=== PATIENT | male | born 1975 ===

== ENCOUNTER 2025-01-24 14:08 | Outpatient (AMB) | payer MEDICARE, SELFPAY ==
--- OUTSIDE RECORDS SUMMARY | 2020-04-16 10:45 | XMS_ITS | Continuity of Care Document ---
Author Organization [facility] Address [address] [place] [phone] Phone Care Team Providers Care Golf Course Superintendent Name Role Phone Chris Haines MD Unavailable Unavaila ble Allergies, Adverse Reactions, Alerts Substance Reaction Status Criticality No Known Allergies Active No Inform ation Medications Medication Instructions Dosage Effective Dates (start - stop) Status Comments erythromycin 5 mg/gram (0.5 %) eye ointment apply 1 drop by ophthalmic route every evening ribbon into the left lower conjunctival sac - Active moxifloxacin 0.5 % eye drops instill 1 drop by Ophthalmic route 4 times every day into left eye 1 drop - Active Fortified Cefazolin 50mg/ml OPHTHALMIC DROPS 1 drop into left eye every hour while awake - Active Cyclogyl 1 % eye drops - Active Procedures Procedure Date OFFICE/OUTPATIENT VISIT, EST Corneal Topography OFFICE/OUTPATIENT VISIT, EST OFFICE/OUTPATIENT VISIT, EST OFFICE/OUTPATIENT VISIT, EST OFFICE/OUTPATIENT VISIT, EST OFFICE/OUTPATIENT VISIT, EST OFFICE/OUTPATIENT VISIT, EST No Charge No Charge CORNEAL SMEAR OFFICE EMERGENCY CARE OFFICE/OUTPATIENT VISIT, NEW Advance Directives Directive Yes / No Effective Date File Name No Information Encounters Encounter Description Practice Location Reason(s) For Visit Diagnoses Date Provider Providers Copied on Encounter OFFICE/OUTPAT IENT VISIT, EST [facility], [address] [place] [address], [id number], [place] tel:[phone] Cornea Consult Service Central corneal ulcer, left eye (chief complaint) Central corneal opacity, left eye 1 eRjio Tavares er. 0 [facility], [address], [place], [address], [place]. tel: [phone] Referring Provider: James Simpson, [address] [place] [address], [address]. tel:[phone] OFFICE/OUTPAT IENT VISIT, [facility], [address] [place] [address], [id number], [place] tel:[phone] 81 Cornea Consult Service Corneal Ulcer OS (chief complaint) Central corneal ulcer, left eyeCentral corneal opacity, left eye 0 Yancy Mioph er. [address] [place] [address], [address], [place], [address], [place]. tel: [phone] Referring Provider: James Simpson, [address] [place] [address], [id number]. tel:[phone] OFFICE/OUTPAT IENT VISIT, [facility], [address] [place] [address], [id number], [place] tel:[phone] 81 Cornea Consult Service Corneal Ulcer OS (chief complaint) Central corneal ulcer, left eye 0 Yancy Chapin er. [address] [place] [address], [address], [place], [address], [place]. tel: [phone] Referring Provider: James Simpson, [address] [place] [address], [place], [address]. tel:[phone] OFFICE/OUTPAT IENT VISIT, [facility], [address] [place] [address], [id number], [place] tel:[phone] 81 Cornea Consult Service corneal ulcer OS (chief complaint) Central corneal ulcer, left eye 0 Yancy Mioph er. [address] [place] [address], [address], [place], [address], [place]. tel: [phone] Referring Provider: James Simpson [address] [place] [address], [facility] [place], [address]. tel:[phone] OFFICE/OUTPAT IENT VISIT, [facility], [address] [place] [address], [id number], [place] tel:[phone] 81 Cornea Consult Service Corneal Ulcer OS (chief complaint) Central corneal ulcer, left eye 0 Rapkolbyo Tavares er. 0 [facility], [address], [place], [address], [place]. tel: [phone] Referring Provider: Cliff Hernandez[address] [place] [address], [facility] [place], [address]. tel:[phone] OFFICE/OUTPAT IENT VISIT, [facility], [address] [place] [address], [id number], [place] tel:[phone] 81 Cornea Consult Service corneal ulcer OS (chief complaint) Central corneal ulcer, left eye 0 Yancy Mioph er. 0 [facility], [address], [place], [address], [place]. tel: [phone] Referring Provider: Cliff Hernandez[address] [place] [address], [facility] [place], [address]. tel:[phone] OFFICE/OUTPAT IENT VISIT, [facility], [address] [place] [address], [id number], [place] tel:[phone] 81 Cornea Consult Service No Information 0 Yancy Mioph er. 0 [facility], [address], [place], [address], [place]. tel: [phone] Referring Provider: [place] Hernandez [facility], [facility] [place], [address]. tel:[phone] [facility], [address] [place] [address], [id number], [place] tel:[phone] 81 Cornea Consult Service Central Corneal Ulcer OS (chief complaint) Central corneal ulcer, left eye 0 Yancy Chapin er. [address] [facility], [address], [place], [address], [place]. tel: [phone] OFFICE/OUTPAT IENT VISIT, [facility], [address] [facility], [place], [place], [id number], [place] tel:[phone] 81 Cornea Consult Service Corneal Ulcer OS. (chief complaint) Central corneal ulcer, left eye 0 Yancy Chapin er. [address] [facility], [address], [place], [address], [place]. tel: [phone] Referring Provider: James Simpson [address] [place] [address], [address]. tel:[phone] Family History Family Member Type Diagnosis Age At Onset No Information Payers Payer name Insurance type Covered constitution party ID Authoriza tirip(s) [facility] [id number] [place] [id number] Social History Type Description Quantity Date Captured Comments Alcohol Use Details Unknown Caffeine Use Details Unknown Tobacco Use Status No Information Smoking Status No Information Sex Male Chief Complaint And Reason For Visit From encounter dated '04/16/2020 15:45'. Central corneal ulcer, left eye (chief complaint). Description: The 45 year old male presents for f/u evaluation of paracentral corneal scarring after a cornea ulcer, OS. Patient reports he has not noticed any changes since last office visit. Vision is still somewhat blurry in OS. OD is fine. Patient states vision in OS is foggy it's like looking out of a dirty window. Denies pain, redness and discharge. Currently using PS ointment qhs OS. Reason For Referral Reason For Referral No Information History Of Present Illness Encounter Date Complaint History Of Prese nt Illness Central corneal ulcer, left eye The 45 year old male presents for f/u evaluation of paracentral corneal scarring after a cornea ulcer, OS. Patient reports he has not noticed any changes since last office visit. Vision is still somewhat blurry in OS. OD is fine. Patient states vision in OS is foggy it's like looking out of a dirty window. Denies pain, redness and discharge. Currently using PS ointment qhs OS. Corneal Ulcer OS The 45 year old male presents for follow-up of corneal ulcer OS. The patient denies pain, redness, discharge comfort is good. Vision is a little less blurry OS, slightly better than last visit, but not back to baseline. Patient using Polysporin ointment qhs OS. Corneal Ulcer OS The 45 year old male presents for follow-up of corneal ulcer OS. The patient denies pain, redness, discharge-comfort is good. Vision is a little less blurry OS but not back to baseline. Currently using moxi qid OS (started 02/12/20) and PS ointment qhs OS. Patient used ff vanc/tobra q4hrs & Cyclogyl bid x 5 days after last visit (stopped 02/12/20). corneal ulcer OS The 45 year old male presents for f/u of corneal ulcer OS. The patient is feeling better and denies pain, redness, d/c. VA is a little less blurry OS. Currently using fortified cefazolin and fortified tobramycin q4h, PS ointment qhs, Cyclogyl 1% bid - all OS. Corneal Ulcer OS The 45 year old male presents for evaluation of corneal ulcer OS. Patient states vision and pain have improved. Overall 30-50% better. Patient states slight occasional headache and discharge upon awakening. Patient states OTC pain medication help with headaches. Patient is currently using fortified cefazolin and fortified tobramycin to q2h WA, PS ointment qhs and Cyclogyl 1% tid, all OS. corneal ulcer OS The 44 year old male presents for f/u of corneal ulcer OS. The patient reports pain OS, sometimes has to take tylenol for relief. VA has slightly improved slightly. Less tearing. Currently using fortified cefazolin q1h WA and q2h ON and fortified tobramycin q1h WA and q2h ON and Cyclogyl 1% tid - all OS. Central Corneal Ulcer OS The 44 year old male presents for 2-day follow-up of a corneal ulcer OS. 1st seen emergently 11/17/20 and cultured and started on fort abx. Vision is blurry OS and not much change from previous visit. Tearing and discomfort MUCH better Currently using FF Ancef/Tobra q1hr WA & q2hrs ON as well as Cyclogyl tid. Using Tylenol & Advil prn for pain as well. Corneal Ulcer OS. The 44 year ol d male presents for an urgent evaluation of corneal ulcer OS. Seen and referred by Dr. James [facility]. Patient reports that on 01/07/20 he first noticed his OS red, irritated and painful in OS; he went to the hospital and was seen and dx'd with possible pink eye. Patient then seen Dr. Simpson on 01/10/20 and was dx'd with corneal ulcer OS and dx'd with ofloxacin q1h WA and Ilo qhs OS. He followed up on 01/13/20 & 01/17/20. Patient states he is still having severe pain and redness with no improvement in OS. Pain level 10/10. Hardly sleeps due to the pain He feels very weak and tired. Vision is stable but blurry in OS. Denies discharge. Patient denies associated trauma prior to onset. Denies CL use. Currently using Ocuflox q1 hr OS and Ilo shant qhs OS. He is also taking po ibuprofen/ Tylenol for pain. Functional Status Date Functional Assessmen t No Information Instructions Date Instruction Additional Infor jacki Impression/Plan Related to Centr al corneal opacity, left eye Impression/Plan Related to Centr al corneal opacity, left eye Impression/Plan Related to Centr al corneal ulcer, left eye Impression/Plan Related to Centr al corneal ulcer, left eye Impression/Plan Related to Centr al corneal ulcer, left eye Impression/Plan Related to Centr al corneal ulcer, left eye Impression/Plan Related to Centr al corneal ulcer, left eye Impression/Plan Related to Centr al corneal ulcer, left eye Assessments Type Assessment Date assessment Central corneal opacity, left ey e impression Central corneal opacity, left ey e: H17.12. Left Patient Care Teams Name Effective Dates (start - stop) Status Members No Information
--- OUTSIDE RECORDS SUMMARY | 2025-01-20 14:34 | XMS_ITS | Encounter Summary ---
Author Organization [place] [address] Care Team Providers Care Carroting Machine Operator Name Role Phone Meseret Hernandez MD Primary Care Provider [phone] Reason for Referral * Imaging (Emergency) - Closed Specialty Diagnoses / Procedures Referred By Contac t Referred To Contact Radiology Diagnoses Generalized anxiety disorder Low thyroid stimulating hormone (TSH) level Procedures US Head Neck Soft Tissue Travis Patten NP [address] [place] [address] Phone: tel: fax: [address] Phone: tel: Referral ID Status Reason Start Date Expiration Date Visits Re quested Visits Authorized [id number] Closed 01/12/2025 01/12/2026 1 1 Reason for Visit * Imaging (Emergency) - Closed Specialty Diagnoses / Procedures Referred By Contac t Referred To Contact Radiology Diagnoses Generalized anxiety disorder Low thyroid stimulating hormone (TSH) level Procedures US Head Neck Soft Tissue Travis Patten NP [address] [place], [place] Phone: tel: fax: [facility] [address] Phone: tel: Referral ID Status Reason Start Date Expiration Date Visits Re quested Visits Authorized [id number] Closed 01/12/2025 01/12/2026 1 1 Encounter Details Date Type Department Care Team (Latest Contact Info) Description 01/20/2025 2:34 PM EST - 01/20/2025 11:59 PM EST Hospital Encounter [facility] Ul[facility]ound [address] [place] [address] Generalized anxiety disorder; Low thyroid stimulating hormone (TSH) level Discharge Disposition: Home or Self Care Social History Tobacco Use Types Packs/Day Years Used Date Smoking Tobacco: Never Smokeless Tobacco: Never Alcohol Use Standard Drinks/Week Comments Yes 0 (1 standard drink = 0.6 oz pur e alcohol) Interpersonal Safety Answer Date Record ed Physical Abuse Unrecognized value 12/17/2024 Verbal Abuse Unrecognized value 12/17/2024 Sex and Gender Information Value Date Recorded Sex Assigned at Male 01/13/2025 11:19 AM EST Legal Sex Male 2:00 PM EDT Gender Identity Male 12/07/2024 12:35 PM EDT Sexual Orientation Not on file documented as of this encounter Medications at Time of Discharge cyclobenzaprine (FLEXERIL) 5 mg tabletIndication s:muscle spasm Take 1 tablet (5 mg total) by mouth 2 (two) times a day if needed for muscle spasms. 30 tablet 01/11/2025 DULoxetine (CYMBALTA) [address] capsule Take 1 capsule (30 mg total) by mouth 1 (one) time each day. Prescribe by STEPHANIE DICKENS 01/05/2025 ergocalciferol (VITAMIN D-2) 1,250 mcg (50,000 unit) capsule Take 1 capsule (50,000 Units total) by mouth 1 (one) time per week. 12 capsule 01/12/2025 naproxen (NAPROSYN) 500 mg tablet Take 1 tablet (500 mg total) by mouth 2 (two) times a day if needed for mild pain (pain). 60 tablet 1 01/11/2025 propranoloL (INDERAL) 20 mg tablet Take 1 tablet (20 mg total) by mouth 3 (three) times a day. 90 each 5 01/12/2025 documented as of this encounter Discharge Disposition Disposition Code Departure Means Destination Home or Self Care documented in this encounter Plan of Treatment Upcoming Encounters Date Type Department Care Team (Late st Contact Info) Description 01/25/2025 2:15 PM EST Clinical Support [address] [phone] 02/15/2025 11:15 AM EST Clinical Support [address] [phone] 02/22/2025 8:00 AM EST Consult Endocrinology [address] [phone] Mis Kohli MD [address] [place] [address] 04/13/2025 11:15 AM EST Office Visit [address] [phone] Meseret Hernandez MD [address] [place] [address] documented as of this encounter Goals Goal Patient Goal Type Associated Problems Recent Progress Patient-Stated? Author Autogenera fabian Goal Care Plan Autogenerated Problem No Jo Jordan documented as of this encounter Procedures Procedure Name Priority Date/Time Associated Diagnosis Comments US HEAD NECK SOFT TISSUE STAT 01/20/2025 3:32 PM EST Generalized anxiety disorder Low thyroid stimulating hormone (TSH) level documented in this encounter Results * US Head Neck Soft Tissue (01/20/2025 3:32 PM EST) Anatomical Region Laterality Modality Head and Neck Ultrasound 01/21/2025 3:51 PM EST Impressions 01/21/2025 3:57 PM EST Bilateral TIRADS 4 nodules. Guidelines recommend FNA of the dominant lower pole nodule on the left. -------- FINAL REPORT -------- Dictated By: Tanner Perez Dictated Date: 01/21/2025 15:51 ET Assigned Physician: Tanner Perez Reviewed and Electronically Signed By: Tanner Perez Signed Date: 01/21/2025 15:57 ET Workstation ID: [id number] Transcribed By: Self Edit Transcribed Date: 01/21/2025 15:51 ET Narrative 01/21/2025 3:57 PM EST PROCEDURE: Thyroid ultrasound. HISTORY: Low TSH, increased anxiety, question graves diseas and Goiter. TECHNIQUE: Grayscale and color Doppler ultrasound evaluation of the thyroid gland. COMPARISON: None. FINDINGS: The right lobe measures 6.8 x 1.8 x 3.1 cm. Left lobe measures 6.3 x 1.8 x 2.6 cm. The isthmus measures 3 mm AP. There are 3 circumscribed hypoechoic subcentimeter lesions in the left lobe. One appears to represent a colloid cyst. The other 2 nodules appear solid. TIRADS 4. There are also 3 nodules in the left lobe. The largest is a 2 cm heterogeneous mixed solid and cystic nodule with echogenic foci consistent with calcifications located in the lower pole (TIRADS 4). The other 2 nodules are subcentimeter and are oval, hypoechoic, and well-defined (TIRADS 4). Procedure Note Tanner Perez MD - 01/21/2025 PROCEDURE: Thyroid ultrasound. HISTORY: Low TSH, increased anxiety, question graves diseas and Goiter. TECHNIQUE: Grayscale and color Doppler ultrasound evaluation of thethyroid gland. COMPARISON: None. FINDINGS: The right lobe measures 6.8 x 1.8 x 3.1 cm. Left lobe measures 6.3 x 1.8 x 2.6 cm. The isthmus measures 3 mm AP. There are 3 circumscribed hypoechoic subcentimeter lesions in the leftlobe. One appears to represent a colloid cyst. The other 2 nodulesappear solid. TIRADS 4. There are also 3 nodules in the left lobe. The largest is a 2 cmheterogeneous mixed solid and cystic nodule with echogenic foci consistentwith calcifications located in the lower pole (TIRADS 4). The other 2nodules are subcentimeter and are oval, hypoechoic, and well-defined(TIRADS 4). IMPRESSION: Bilateral TIRADS 4 nodules. Guidelines recommend FNA of the dominantlower pole nodule on the left. -------- FINAL REPORT -------- Dictated By: Tanner Perez Dictated Date: 01/21/2025 15:51 ET Assigned Physician: Tanner Perez Reviewed and Electronically Signed By: Tanner Perez Signed Date: 01/21/2025 15:57 ET Workstation ID: [id number] Transcribed By: Self Edit Transcribed Date: 01/21/2025 15:51 ET us Travis Patten RN DOCUMENT IMPROVEMENT IMG US PROCEDURES Final Resu lt documented in this encounter Visit Diagnoses Diagnosis Generalized anxiety disorder Low thyroid stimulating hormone (TSH) level documented in this encounter Additional Health Concerns Active Problems Noted Date Diagnosed Date Autogenerated Problem 12/31/2024 Assessment Noted Time PHQ-9 Depression Total Score: 7 12/01/19 25 3:00 PM EDT documented as of this encounter Care Teams Carroting Machine Operator Relationship Specialty Start Date End Date Meseret Hernandez MD [address] [place] [address] PCP - General Internal Medicine 07/11/14 documented as of this encounter
--- NOTE | 2025-01-24 14:31 | A.PHYSOV_ITS ---
Intake Visit Reasons: NPV Shakira Ref- eval for spinal stenosis (ASL) Intake Note: Patient is here for a new patient office visit. Patient is here for lack of sensation in his feet. Application Integration Specialist referred for possible lumbar spinal stenosis. National Account Executive Required: Yes National Account Executive Name: Kristi [id number] Allergies No Known Allergies Allergy (Verified 01/24/25 14:34) HPI Comments Details: History of Present Illness: Today's visit took place with ic designer standard cells # [id number] The patient is a 50-year-old individual presenting for for consultation with chronic pain management concerns. The patient reports having osteoarthritis in both hips, which has been a persistent issue. The patient has experienced chronic lower back pain and severe tailbone pain, which significantly impacts daily activities, including sleep. The patient moved from [place] to [place] in October and has a history of receiving injections every three to four months for tailbone pain, which were previously effective until the last injection in September, which did not provide relief. Patient has also undergone hip bursal injection. The patient has not engaged in physical therapy or adult care manager for these conditions. Pain level today as a 7/10. The patient uses [id number] medications such as Motrin and Tylenol for pain management but has not found them particularly effective. The patient has attempted using a sitting donut for tailbone pain relief, but it has not been beneficial. Patient reports having MRI of his lumbar spine as well as his hip in [place]. I reviewed the referring provider's no prior to consultation. Pain Description - Onset: Several years ago - Quality: Severe tailbone pain, chronic lower back pain, and hip pain - Location: Tailbone, lower back, and hips - Exacerbating factors: Sitting for prolonged periods - Relieving factors: Previously effective injections, but not the last one - Interference: Difficulty sleeping due to pain Results - Imaging: MRI of lumbar spine and hips from [facility] Social History (Updated 01/24/25 @ 14:35 by Marcy Wolff MA) Alcohol intake: current Alcohol intake frequency: does not drink Patient Tobacco Use Status: Never used Tobacco Use of substances other than those prescribed or required for medical reasons: No Review of Systems Narrative Review of Systems - Musculoskeletal: Reports chronic lower back pain, hip pain, and tailbone pain - Neurological: Denies any injury Physical Exam Exam Exam: Physical Exam Lumbar Spine: Examination of his lumbar spine, he is tender to lower lumbar facets, bilateral SI joint as well as the sacrum and coccyx. He has full range of motion of the lumbar spine with pain. He does have an increase in pain with facet loading. Special Tests: Lhermittes sign was negative Heel Toe walk is normal Left straight leg raise: Negative Right straight leg raise: Negative Special tests Kasia test is negative Ganslen's test is negative SI Joint compression test negative Lacie test negative Piriformis stretch is negative Lower Extremities: Full range of motion bilateral lower extremities. No calf pain or edema. His pain is not reproducible with hip range of motion. He is markedly tender over bilateral greater trochanteric bursa. Neuro: Sensation: Intact to lower extremities bilaterally Strength L2 (Psoas): 5/5 on the left and 5/5 on the right. L3 (Quads): 5/5 on the left and 5/5 on the right. L4 (Ant tibialis): 5/5 on the left and 5/5 on the right. L5 (EHL) 5/5 on the left and 5/5 on the right. S1 (Gastroc): 5/5 on the left and 5/5 on the right. DTR L4: (Patellar) Left 2 Right 2 S1: (Achilles) Left 2 Right 2 Babinski Downgoing No pathologic clonus. No involuntary movement. Assessment & Plan Assessment & Plan (1) Coccyodynia: Code(s): M53.3 - Sacrococcygeal disorders, not elsewhere classified Category: Medical (2) Lumbar radiculopathy: Code(s): M54.16 - Radiculopathy, lumbar region Category: Medical (3) Bursitis of both hips: Code(s): M70.71 - Other bursitis of hip, right hip; M70.72 - Other bursitis of hip, left hip Category: Medical Qualifiers: Hip bursitis location: trochanteric bursitis Qualified Code(s): M70.61 - Trochanteric bursitis, right hip; M70.62 - Trochanteric bursitis, left hip Plan Pain Management - Affect: Pain significantly impacts sleep and daily activities - Analgesia: Uses Motrin and Tylenol, but effectiveness is uncertain - Adverse Effects: None reported - Activities of Daily Living: Pain interferes with sitting and sleeping - Aberrant Drug Related Behaviors: None reported Plan Patient was informed and verbally consented to the use of an ambient scribe for clinic note documentation during this visit. 1. Osteoarthritis Of The Hips The plan includes obtaining previous medical records to review past treatments and imaging studies to avoid unnecessary repetition. Physical therapy is recommended to improve hip, low back function and alleviate pain. His pain is not reproducible with hip range of motion. 2. Chronic Lower Back Pain The patient is advised to engage in physical therapy to address lower back pain and improve mobility. A sitting donut is recommended to alleviate pressure on the tailbone during sitting at all times.. 3. Coccydynia (Tailbone Pain) The patient is advised to use a sitting donut consistently to relieve tailbone pressure. Supplementation with calcium and vitamin D is suggested to support bone health. The patient is encouraged to follow up after physical therapy and vitamin supplementation to assess progress. Patient will continue his home exercise plan and medications as prescribed. Follow-up post physical therapy for further evaluation and reviewing previous treatments. We discussed the benefits of proper nutrition and exercise to maintain a healthy body weight to improve longevity and function. We also discussed the benefits of proper lifting techniques, core strengthening and proper posture. Thank you for allowing me to participate in the care of your patient. Orders: Orders PT Evaluation and Treatment Today M53.3 - Sacrococcygeal disorders, not else where classified, M54.16 - Radiculopathy, lumbar region, M70.71 - Other bursitis of hip, right hip, M70.72 - Other bursitis of hip, left hip Coding Level of Care Code Tele New Pt Level 4 (32735) Diagnoses Coccyodynia M53.3 Lumbar radiculopathy M54.16 Trochanteric bursitis of both hips M70.61; M70.62 Hip bursitis location: trochanteric bursitis
--- OUTSIDE RECORDS SUMMARY | 2025-01-24 18:02 | XMS_ITS | Encounter Summary ---
Author Organization [facility] [place] [address] Care Team Providers Care Director Of Field Service Name Role Phone Meseret Hernandez MD Primary Care Provider [phone] Reason for Visit * Reason Onset Date Comments ALS 01/11/2025 Encounter Details Date Type Department Care Team (Late st Contact Info) Description 01/11/2025 Telephone Adult Medicine [address] [phone] Meseret Hernandez MD [address] [place] [address] [phone] Social History Tobacco Use Types Packs/Day Years [...] on file documented as of this encounter Progress Notes * Kenna Pelletier - 2025 7:32 AM EST Please complete a telephone encounter and use deaf and hard of hearing reason for call . Completethe information and send it directly to me. Thank you * Charley De Leon MA - 01/12/2025 9:57 AM EST Patient is asking for an in-person learning disabilities teacher for their 04/13/2025 appointment. Please advise * Esther Odonnell - 01/11/2025 3:38 PM EST Pt is requesting ALS learning disabilities teacher. Wants a person not the screen. documented in this encounter Plan of Treatment Upcoming Encounters Date Type Department Care Team (Late st Contact Info) Description 01/25/2025 2:15 PM EST Clinical Support Adult [address] [phone] 02/15/2025 11:15 AM EST Clinical Support Adult [address] [phone] 02/22/2025 8:00 AM EST Consult Endocrinology [address] [phone] Mis Kohli MD [address] [place] [address] 04/13/2025 11:15 AM EST Office Visit Adult [address] [phone] Meseret Hernandez MD [address] [place] [address] documented as of this encounter Goals Goal Patient Goal Type Associated Problems Recent Progress Patient-Stated? Author Autogenera fabian Goal Care Plan Autogenerated Problem No Jo Jordan documented as of this encounter Visit Diagnoses Not on filedocumented in this encounter Additional Health Concerns Active Problems Noted Date Diagnosed Date Autogenerated Problem 12/31/2024 Assessment Noted Time PHQ-9 Depression Total Score: 7 12/01/19 25 3:00 PM EDT documented as of this encounter Care Teams Director Of Field Service Relationship Specialty Start Date End Date Meseret Hernandez MD [address] [place] [address] PCP - General Internal Medicine 07/11/14 documented as of this encounter
--- OUTSIDE RECORDS SUMMARY | 2025-01-24 18:02 | XMS_ITS | Encounter Summary ---
Author Organization [facility] [place] [address] Care Team Providers Care Order Filler Name Role Phone Meseret Hernandez MD Primary Care Provider [phone] Encounter Details Date Type Department Care Team (Late st Contact Info) Description 01/12/2025 Results Follow-Up Adult Medicine [facility] [place], [place] [address] [place], [place] [phone] Travis Patten, MAICOL [address] [place], [place] Social History Tobacco Use Types Packs/Day Years [...] on file documented as of this encounter Plan of Treatment Upcoming Encounters Date Type Department Care Team (Late st Contact Info) Description 01/25/2025 2:15 PM EST Clinical Support [address] [phone] 02/15/2025 11:15 AM EST Clinical Support [address] [phone] 02/22/2025 8:00 AM EST Consult Endocrinology [address] [phone] Mis Kohli MD [address] [place] [address] 04/13/2025 11:15 AM EST Office Visit [address] [phone] Meseret Hernandez MD [address] [place] [address] documented as of this encounter Goals Goal [...] documented as of this encounter Care Teams Order Filler Relationship Specialty Start Date End Date Meseret Hernandez MD [address] [place] [address] PCP - General Internal Medicine 07/11/14 documented as of this encounter
--- OUTSIDE RECORDS SUMMARY | 2025-01-24 18:02 | XMS_ITS | Clinical Summary ---
Author Organization [facility] Address [address] [place] [address] Phone Care Team Providers Care Pattern Clerk Name Role Phone Meseret Hernandez MD Primary Care Provider [phone] Allergies No known active allergies Medications DULoxetine (CYMBALTA) [address] capsule Take 1 capsule (30 mg total) by mouth 1 (one) time each day. Prescribe by STEPHANIE DICKENS 01/06/20 25 Active naproxen (NAPROSYN) 500 mg tablet Take 1 tablet (500 mg total) by mouth 2 (two) times a day if needed for mild pain (pain). 60 tablet 1 01/12/20 25 Active cyclobenzaprin e (FLEXERIL) 5 mg tabletIndicati ons:muscle spasm Take 1 tablet (5 mg total) by mouth 2 (two) times a day if needed for muscle spasms. 30 tablet 01/12/20 25 Active ergocalciferol (VITAMIN D-2) 1,250 mcg (50,000 unit) capsule Take 1 capsule (50,000 Units total) by mouth 1 (one) time per week. 12 capsule 01/13/20 25 Active propranoloL (INDERAL) 20 mg tablet Take 1 tablet (20 mg total) by mouth 3 (three) times a day. 90 each 5 01/13/20 25 026 Active FLUoxetine (PROzac) 10 mg capsule Take 1 capsule (10 mg total) by mouth 1 (one) time each day. 30 each 1 12/16/19 25 025 Discontinued pantoprazole (PROTONIX) 40 mg EC tablet Take 1 tablet (40 mg total) by mouth 1 (one) time each day before breakfast. Do not crush, chew, or split. 025 Discontinued tamsulosin (FLOMAX) 0.4 mg 24 hr capsule Take 1 capsule (0.4 mg total) by mouth 1 (one) time each day. Capsules should be taken 30 minutes following the same meal each day. 30 each 12/19/19 25 025 Discontinued amoxicillin-cl avulanate (AUGMENTIN) 875-125 mg per tablet Take 1 tablet by mouth 2 (two) times a day for 10 days. 20 each 12/21/19 25 025 Discontinued diclofenac (Voltaren Arthritis Pain) 1 % topical gel Apply 4 g topically 2 (two) times a day. 240 g 1 01/07/20 25 025 Discontinued(Co st of medication) Hospital, Clinic, or Other Facility Administered Medication Ordered Dose Route Frequency Start Date End Date Status cyanocobalamin (VITAMIN B-12) injection 1,000 mcgIndications:Gener alized anxiety disorder,Low thyroid stimulating hormone (TSH) level,Vitamin B12 deficiency disease 1000 mcg IM See admin instructions 01/12/2025 Active Active Problems Problem Noted Date Diagnosed Date Hydronephrosis with urinary obstruction due to ureteral calculus 12/17/2024 Obesity (BMI 35.0-39.9 without comorbidity) 07/31 Deaf 07/26/2014 Posterior tibial tendinitis of left leg 07/27/19 15 Encounters Date Type Department Care Team Description 01/23/2025 Results Follow-Up Adult Medicine [address] [phone] Travis Patten NP 01/20/2025 2:34 PM EST - 01/20/2025 11:59 PM EST Hospital Encounter [facility] Ultrasound [address] [place] [phone] Generalized anxiety disorder; Low thyroid stimulating hormone (TSH) level Discharge Disposition: Home or Self Care 01/12/2025 Results Follow-Up [address] [phone] Travis Patten NP 01/12/2025 Results Follow-Up [address] [phone] Travis Patten NP 01/11/2025 3:15 PM EST Lab Draw Station [address] Plantar fasciitis; Palpitation; Generalized anxiety disorder; Unintentional weight loss 01/11/2025 2:57 PM EST - 01/11/2025 11:59 PM EST Hospital Encounter [address] [phone] Routine eye exam; Neck pain Discharge Disposition: Home or Self Care 01/11/2025 2:00 PM EST Office Visit [address] [phone] Travis Patten, MAICOL Generalized anxiety disorder (Primary Dx); Xerostomia; Neck pain; Chronic bilateral low back pain without sciatica; Routine eye exam 01/11/[address] [phone] Meseret Hernandez MD 01/05/2025 Telephone Orthopedic Surgery [address] [phone] Chris Mace DPM 01/04/2025 8:45 AM EST Consult Orthopedic [address] [phone] Chris Mace DPM Neuritis of foot, unspecified laterality (Primary Dx) 12/30/2024 2:24 PM EDT Anesthesia Event [facility] Main OR [address] [place] [phone] Darin Brady MD Steele, Matthew G, CRNA 12/30/2024 2:00 PM EDT - 12/30/2024 3:30 PM EDT Surgery [facility] OR [address] [place] [phone] Mo Henson MD CYSTOSCOPY,URETEROSC OPY,LASER LITHOTRIPSY & STENT LEFT [61749 (CPT )] 12/30/2024 12:37 PM EDT - 12/30/2024 6:15 PM EDT Hospital Encounter [facility] OR [address] [place] [phone] Mo Henson MD Pain Discharge Disposition: Home or Self Care 12/28/2024 Telephone Adult [address] [phone] Lynnette Ayoub MA 12/22/2024 Lab Requisition [facility] Lab [address] [facility] [place] [phone] Miguel Brandon MD Urinary tract infection, site not specified; Calculus of ureter 12/20/2024 2:30 PM EDT Office Visit Adult [address] [phone] Travis Patten NP Acute non-recurrent frontal sinusitis (Primary Dx); Generalized anxiety disorder; Dry skin 12/19/2024 Telephone Adult Medicine [address] [phone] Meseret Hernandez MD 12/19/2024 Telephone Adult Medicine [address] [phone] Meseret Hernandez MD 12/17/2024 3:54 PM EDT - 12/18/2024 11:19 AM EDT Hospital Encounter [facility] Medical Surgical Unit [address] [place] [phone] Richie Agosto MD Gordon, Ruth, MD Jones, Christopher, MD Seralathan, John, MD Left flank pain (Primary Dx); Ureterolithiasis; Hydronephrosis with urinary obstruction due to ureteral calculus Discharge Disposition: Home or Self Care 12/15/2024 3:00 PM EDT Office Visit Adult [address] [phone] Travis Patten NP Plantar fasciitis (Primary Dx); Generalized anxiety disorder; Palpitation; Unintentional weight loss; Bilateral flank pain; Kidney stone; Encounter for examination following treatment at hospital 12/15/2024 Results Follow-Up Gastroenterology [address] [phone] Kayla Deutsch NP 12/15/[address] [phone] Meseret Hernandez MD 12/14/2024 8:07 AM EDT - 12/14/2024 3:00 PM EDT Emergency [facility] Emergency [address] [place] [phone] Hydronephrosis concurrent with and due to calculi of kidney and ureter (Primary Dx) Discharge Disposition: Home or Self Care 12/13/2024 10:00 AM EDT Consult Gastroenterology [address] [phone] Kayla Deutsch NP Weight loss, unintentional (Primary Dx); History of colon polyps 12/12/2024 Telephone Adult Medicine [address] [phone] Meseret Hernandez MD 12/06/2024 Telephone Adult Medicine [address] [phone] Travis Patten NP 12/06/2024 Telephone Gastroenterology [address] [phone] Kayla Deutsch NP 12/03/2024 Results Follow-Up [address] [phone] Travis Patten NP 12/03/2024 Results Follow-Up [address] [phone] Travis Patten NP 11/30/2024 4:15 PM EDT - 11/30/2024 11:59 PM EDT Hospital Encounter [address] [phone] Chronic midline low back pain without sciatica; Coccyx pain Discharge Disposition: Home or Self Care 11/30/2024 4:14 PM EDT - 11/30/2024 11:59 PM EDT Hospital Encounter [address] [phone] Chronic midline low back pain without sciatica; Coccyx pain Discharge Disposition: Home or Self Care 11/30/2024 2:30 PM EDT Office Visit [address] [phone] Travis Patten NP Anxiety (Primary Dx); Kidney stone; Unintentional weight loss; Generalized abdominal pain; Gastroesophageal reflux disease without esophagitis; Chronic midline low back pain without sciatica; Coccyx pain 11/14/2024 Telephone Adult [address] [phone] Meseret Hernandez MD 11/14/2024 Telephone Adult Medicine [address] [phone] Meseret Hernandez MD 11/13/2024 9:17 PM EDT - 11/14/2024 2:45 AM EDT Emergency [facility] Emergency [address] [place] [phone] Yanna Stephens MD Right flank pain (Primary Dx); Anxiety Discharge Disposition: Home or Self Care 11/12/2024 12:28 PM EDT - 11/12/2024 9:15 PM EDT Emergency [facility] Emergency [address] [place] [phone] Mo Whitehead MD [place] (acute kidney injury) ([facility] V24) (Primary Dx); Kidney stone Discharge Disposition: Home or Self Care from Last 3 Months Surgical History Surgery Date Site/Laterality Comments HERNIA REPAIR Medical History Medical History Date Comments Obesity (BMI 35.0-39.9 witho ut comorbidity) 08/09/2018 DX:Obesity (BMI 35.0-39.9 wi thout comorbidity) Kidney stones Deafness Anxiety Depression GERD (gastroesophageal reflux disease) Family History Medical History Relation Name Comments Hyperlipidemia Mother Relation Name Status Comments Brother Alive Father Alive Mother Alive Sister Alive Social History Tobacco Use Types Packs/Day Years Used Date Smoking Tobacco: Never Smokeless Tobacco: Never Tobacco Cessation:Counseling Given: Not Answered Alcohol Use Standard Drinks/Week Comments Yes 0 [...] PM EDT Sexual Orientation Not on file Obstetrics History Last Filed Vital Signs Vital Sign Reading Time Taken Comments Blood Pressure 110/62 01/11/2025 2:21 PM EST Pulse 95 01/11/2025 2:21 PM EST Temperature 35.9 C (96.7 F) 01/11/2025 2:21 PM EST Respiratory Rate 16 12/30/2024 4:10 PM EDT Oxygen Saturation 100% 12/30/2024 4:10 PM EDT Inhaled Oxygen Concentration - - Weight 88 kg (194 lb) 01/11/2025 2:21 PM EST Height 188 cm (6' 2 ) 01/11/2025 2:21 PM EST Body Mass Index 24.91 01/11/2025 2:21 PM EST Plan of Treatment Upcoming Encounters Date Type Department Care Team (Late st Contact Info) Description 01/25/2025 2:15 PM EST Clinical Support Adult Medicine [address], [place] [phone] 02/15/2025 11:15 AM EST Clinical Support Adult [address] [phone] 02/22/2025 8:00 AM EST Consult Endocrinology [address] [phone] Mis Kohli MD [address] [place] [address] 04/13/2025 11:15 AM EST Office Visit Adult Medicine [address] [phone] Meseret Hernandez MD [address] [place] [address] Health Maintenance Due Date Last Done Comments Colorectal Cancer Screening: Colonoscopy 1976 DTaP,Tdap,and Td Vaccines (1 - Tdap) 01/23/1995 Hepatitis B Vaccines (1 of 3 - 19+ 3-dose series) 01/23/1995 COVID-19 Vaccine ( - 2024-2 6 season) 2024 Influenza Vaccine (#1) 2024 12/22/2014 Cholesterol Screening (Lipid Panel) 11/12/2024 HIV Screening 11/12/2024 Hepatitis C Screening 11/12/2024 Medicare Annual Wellness Visit 11/12/2024 Social Influencers of Health Screening 11/12/2024 RSV Immunization Adult Patie nts (1 - 1-dose 75+ series) 01/23/2051 Depression Screening Completed 11/30/2024 HIB Vaccines Aged Out No longer eligi ble based on patient's age to complete this topic HPV Vaccines Aged Out No longer eligi ble based on patient's age to complete this topic Hepatitis A Vaccines Aged Out No long er eligible based on patient's age to complete this topic IPV Vaccines Aged Out No longer eligi ble based on patient's age to complete this topic MMR Vaccines Aged Out No longer eligi ble based on patient's age to complete this topic Meningococcal ACWY Vaccine Aged Out N o longer eligible based on patient's age to complete this topic Meningococcal B Vaccine Aged Out No l onger eligible based on patient's age to complete this topic Pneumococcal Vaccine: Pediat rics (0 to 5 Years) and At-Risk Patients (6 to 49 Years) Aged Out No longer eligi ble based on patient's age to complete this topic RSV Immunization Patients Un katheryn 20 months Aged Out No longer eligible b ased on patient's age to complete this topic Varicella Vaccines Aged Out No longer eligible based on patient's age to complete this topic Goals Goal Patient Goal Type Associated Problems Recent Progress Patient-Stated? Author Autogenera fabian Goal Care Plan Autogenerated Problem No [employer] Implanted Type Area Creative Manager Device Identifier Shelf Expiration Date Model / Serial / Lot Stent Uret [id number] Contr Perc[employer]lex Hydroplus - Sn/A - [id number] Implanted:Qty: 1 on 12/30/2024 by Mo Henson MD at [facility] Stents Left: Ureter [employer]GYNECOLG Y 07/28/2027 [id number] / N/A / [id number] Description:STRING IN PLACE , MASTISOL AND STERI-STRIPS USED ON END OF PENIS Procedures Procedure Name Priority Date/Time Associated Diagnosis Comments US HEAD NECK SOFT TISSUE STAT 01/20/2025 3:32 PM EST Generalized anxiety disorder Low thyroid stimulating hormone (TSH) level TRIIODOTHYRONINE FREE Routine 01/11/2025 3:17 PM EST Plantar fasciitis Palpitation Generalized anxiety disorder Unintentional weight loss FREE THYROXINE WITH REFLEX TO FREE TRIIODOTHYRONINE Routine 01/11/2025 3:17 PM EST Plantar fasciitis Palpitation Generalized anxiety disorder Unintentional weight loss THYROID STIMULATING HORMONE WITH REFLEX TO FREE T4 AND FREE T3 Routine 01/11/2025 3:17 PM EST Plantar fasciitis Palpitation Generalized anxiety disorder Unintentional weight loss VITAMIN B12 Routine 01/11/2025 3:17 PM EST Plantar fasciitis Palpitation Generalized anxiety disorder Unintentional weight loss FOLATE Routine 01/11/2025 3:17 PM EST Plantar fasciitis Palpitation Generalized anxiety disorder Unintentional weight loss XR CERVICAL SPINE 4-5 VIEWS Routine 01/11/2025 3:07 PM EST Routine eye exam Neck pain XR UROGRAM RETROGRADE Routine 12/30/2024 3:08 PM EDT Pain TH AN LMA(NO CHARGE) Routine 12/30/2024 2:39 PM EDT ME CYSTO W URETEROSCOPY/PYELOSCOP Y W LITHOTRIPSY INCL INDWELLING URTRL STNT 12/30/2024 2:30 PM EDT Calculus of ureter Case Notes SECOND VP HR ASSESSMENT,C-ARM, HOLMIUM CULTURE URINE Routine 12/22/2024 12:00 AM EDT Urinary tract infection, site not specified Calculus of ureter DRUG ABUSE SCREEN 8A PANEL, URINE Routine 12/18/2024 8:22 AM EDT CULTURE URINE STAT 12/18/2024 8:22 AM EDT CBC WITH AUTO DIFFERENTIAL Routine 12/18/2024 5:54 AM EDT CBC AND DIFFERENTIAL Routine 12/18/2024 5:54 AM EDT BASIC METABOLIC PANEL Routine 12/18/2024 5:[address] ABDOMEN PELVIS W CONTRAST STAT 12/17/2024 6:45 PM EDT URINALYSIS WITH REFLEX MICROSCOPIC STAT 12/17/2024 5:59 PM EDT URINALYSIS WITH REFLEX MICROSCOPIC STAT 12/17/2024 5:59 PM EDT CBC WITH AUTO DIFFERENTIAL STAT 12/17/2024 4:15 PM EDT COMPREHENSIVE METABOLIC PANEL STAT 12/17/2024 4:15 PM EDT CBC AND DIFFERENTIAL STAT 12/17/2024 4:15 PM EDT BOSS URINE CULTURE TUBE STAT 12/14/2024 11:45 AM EDT URINALYSIS WITH REFLEX MICROSCOPIC AND CULTURE STAT 12/14/2024 11:45 AM EDT URINALYSIS WITH REFLEX MICROSCOPIC AND CULTURE STAT 12/14/2024 11:[address] ABDOMEN PELVIS W CONTRAST STAT 12/14/2024 10:31 AM EDT CBC WITH AUTO DIFFERENTIAL STAT 12/14/2024 9:00 AM EDT CBC AND DIFFERENTIAL STAT 12/14/2024 9:00 AM EDT LIPASE STAT 12/14/2024 9:00 AM EDT COMPREHENSIVE METABOLIC PANEL STAT 12/14/2024 9:00 AM EDT GLIADIN ANTIBODIES, SERUM Routine 12/13/2024 10:48 AM EDT Weight loss, unintentional ENDOMYSIAL ANTIBODY, IGA Routine 12/13/2024 10:48 AM EDT Weight loss, unintentional TISSUE TRANSGLUTAMINASE, IGA Routine 12/13/2024 10:48 AM EDT Weight loss, unintentional IMMUNOGLOBULIN IGA Routine 12/13/2024 10:48 AM EDT Weight loss, unintentional IMMUNOGLOBULIN IGA Routine 12/13/2024 10:48 AM EDT Weight loss, unintentional TISSUE TRANSGLUTAMINASE, IGG Routine 12/13/2024 10:48 AM EDT Weight loss, unintentional XR SACRUM COCCYX 2+ VIEWS Routine 11/30/2024 4:27 PM EDT Chronic midline low back pain without sciatica Coccyx pain XR LUMBAR SPINE 4+ VIEWS Routine 11/30/2024 4:27 PM EDT Chronic midline low back pain without sciatica Coccyx pain BOSS URINE CULTURE TUBE STAT 11/13/2024 10:13 PM EDT URINALYSIS WITH REFLEX MICROSCOPIC AND CULTURE STAT 11/13/2024 10:13 PM EDT URINALYSIS WITH REFLEX MICROSCOPIC AND CULTURE STAT 11/13/2024 10:13 PM EDT CBC WITH AUTO DIFFERENTIAL STAT 11/13/2024 9:34 PM EDT COMPREHENSIVE METABOLIC PANEL STAT 11/13/2024 9:34 PM EDT CBC AND DIFFERENTIAL STAT 11/13/2024 9:34 PM EDT BASIC METABOLIC PANEL STAT 11/12/2024 6:40 PM EDT BOSS URINE CULTURE TUBE STAT 11/12/2024 4:03 PM EDT URINALYSIS WITH REFLEX MICROSCOPIC AND CULTURE STAT 11/12/2024 4:03 PM EDT URINALYSIS WITH REFLEX MICROSCOPIC AND CULTURE STAT 11/12/2024 4:03 PM EDT CULTURE URINE STAT 11/12/2024 4:[address] ABDOMEN PELVIS W CONTRAST STAT 11/12/2024 2:21 PM EDT ECG 12-LEAD STAT 11/12/2024 1:58 PM EDT CBC WITH AUTO DIFFERENTIAL STAT 11/12/2024 12:20 PM EDT LIPASE STAT 11/12/2024 12:20 PM EDT COMPREHENSIVE METABOLIC PANEL STAT 11/12/2024 12:20 PM EDT CBC AND DIFFERENTIAL STAT 11/12/2024 12:20 PM EDT from Last 3 Months Results * US Head Neck Soft Tissue [...] Signed Date: 01/21/2025 15:57 ET Workstation ID: [id number] Transcribed By: Self Edit Transcribed Date: 01/21/2025 [...] Signed Date: 01/21/2025 15:57 ET Workstation ID: [id number] Transcribed By: Self Edit Transcribed Date: 01/21/2025 15:51 ET Travis Patten LEAFLET DISTRIBUTOR IMG US PROCEDURES Final Resu lt * (ABNORMAL) Thyroid stimulating hormone with reflex to free t4 and free t3 (01/11/2025 3:17 PM EST) TSH 0.06(L) 0.40 - 4.00 mcIU/mL LAB CHEMISTRY METHOD 01/11/2025 7:08 PM EST [facility] Blood Venous blood specimen / Unknown Venipuncture / Unknown 01/11/2025 3:17 PM EST 01/11/2025 3:17 PM EST Travis Patten LEAFLET DISTRIBUTOR LAB BLOOD ORDERABLES Final R esult Performing Organization Address City/[facility]/ZIP Co de Phone Number [facility] [address] [place] [address], [place] [phone] * Free thyroxine with reflex to free triiodothyronine (01/11/2025 3:17 PM EST) Free T4 1.15 0.70 - 1.80 ng/dL LAB CHEMISTRY METHOD 01/11/2025 8:19 PM EST [facility] Blood Venous blood specimen / Unknown Venipuncture / Unknown 01/11/2025 3:17 PM EST 01/11/2025 3:17 PM EST Travis Patten LEAFLET DISTRIBUTOR LAB BLOOD ORDERABLES Final R esult Performing Organization Address [facility] Co de Phone Number [facility] [address] [place] [address], [place] [phone] * (ABNORMAL) Triiodothyronine free (01/11/2025 3:17 PM EST) T3, Free 439(H) 230 - 420 pcg/dL LAB CHEMISTRY METHOD 01/11/2025 9:14 PM EST [facility] Blood Venous blood specimen / Unknown Venipuncture / Unknown 01/11/2025 3:17 PM EST 01/11/2025 3:17 PM EST Travis Patten LEAFLET DISTRIBUTOR LAB BLOOD ORDERABLES Final R esult Performing Organization Address City/[facility]/ZIP Co de Phone Number [facility] [address] [place] [address], [place] [phone] * Folate (01/11/2025 3:17 PM EST) Folate 11.0 2.8 - 17.0 ng/ml LAB CHEMISTRY METHOD 01/11/2025 7:15 PM EST [facility] Blood Venous blood specimen / Unknown Venipuncture / Unknown 01/11/2025 3:17 PM EST 01/11/2025 3:17 PM EST Travis Patten LEAFLET DISTRIBUTOR LAB BLOOD ORDERABLES Final R esult Performing Organization Address [facility] de Phone Number [facility] [address] [place] [address], [place] [phone] * (ABNORMAL) Vitamin B12 (01/11/2025 3:17 PM EST) [facility] Vitamin B-12 174(L) 250 - 900 pcg/mL LAB CHEMISTRY METHOD 01/11/2025 7:35 PM EST [facility] Blood Venous blood specimen / Unknown Venipuncture / Unknown 01/11/2025 3:17 PM EST 01/11/2025 3:17 PM EST Travis Patten LEAFLET DISTRIBUTOR LAB BLOOD ORDERABLES Final R esult Performing Organization Address [facility] de Phone Number [facility] [address] [place] [address], [place] [phone] * XR Cervical Spine 4-5 Views (01/11/2025 3:07 PM EST) Anatomical Region Laterality Modality Spine, C-spine Radiographic Crystal ging 01/12/2025 7:38 AM EST Impressions 01/12/2025 7:40 AM EST Spondylosis and neural foraminal narrowing as described. -------- FINAL REPORT -------- Dictated By: Patience Castañeda Dictated Date: 01/12/2025 07:38 ET Assigned Physician: Patience Castañeda Reviewed and Electronically Signed By: Patience Castañeda Signed Date: 01/12/2025 07:40 ET Workstation ID: [id number] Transcribed By: Self Edit Transcribed Date: 01/12/2025 07:38 ET Narrative 01/12/2025 7:40 AM EST CERVICAL SPINE, 4 VIEWS HISTORY: Pain. FINDINGS: There is straightening of the normal lordotic curve. No fracture or dislocation is seen. The paravertebral soft tissues are unremarkable. There is disc space narrowing and endplate spurring at C3-4. There is mild endplate spurring at C2-3 C4-5. There is right neural foraminal narrowing from osteophytes at C4-5. Procedure Note Patience Castañeda MD - 01/12/2025 CERVICAL SPINE, 4 VIEWS HISTORY: Pain. FINDINGS: There is straightening of the normal lordotic curve. No fracture ordislocation is seen. The paravertebral soft tissues are unremarkable. There is disc space narrowing and endplate spurring at C3-4. There ismild endplate spurring at C2-3 C4-5. There is right neural foraminal narrowing from osteophytes at C4-5. IMPRESSION: Spondylosis and neural foraminal narrowing as described. -------- FINAL REPORT -------- Dictated By: Patience Castañeda Dictated Date: 01/12/2025 07:38 ET Assigned Physician: Patience Castañeda Reviewed and Electronically Signed By: Patience Castañeda Signed Date: 01/12/2025 07:40 ET Workstation ID: [id number] Transcribed By: Self Edit Transcribed Date: 01/12/2025 07:38 ET Travis Patten LEAFLET DISTRIBUTOR IMG XR PROCEDURES Final Resu lt * XR Urogram Retrograde (12/30/2024 3:08 PM EDT) Anatomical Region Laterality Modality Body Radio Fluoroscop y 12/31/2024 9:17 AM EDT Impressions 12/31/2024 9:18 AM EDT Imaging assistance provided during a urologic procedure -------- FINAL REPORT -------- Dictated By: Xavier Crenshaw Dictated Date: 12/31/2024 09:17 ET Assigned Physician: Xavier Crenshaw Reviewed and Electronically Signed By: Xavier Crenshaw Signed Date: 12/31/2024 09:18 ET Workstation ID: [id number] Transcribed By: Self Edit Transcribed Date: 12/31/2024 09:17 ET Narrative 12/31/2024 9:18 AM EDT EXAMINATION: Imaging assistance provided during a procedure CLINICAL INFORMATION: Pain COMPARISON: None. TECHNIQUE: UROLOGIC-Imaging assistance was provided during a urologic procedure FINDINGS: Images are not labeled left or right. Cystoscope present. The lower aspect of a stent is coiled in the expected region of the urinary bladder and distal ureter Total dose area product : 704.52 mGycm2 Fluoroscopy time: 6.5 seconds Procedure Note Xavier Crenshaw MD - 12/31/2024 EXAMINATION: Imaging assistance provided during a procedure CLINICAL INFORMATION: Pain COMPARISON: None. TECHNIQUE: UROLOGIC-Imaging assistance was provided during a urologic procedure FINDINGS: Images are not labeled left or right. Cystoscope present. The lower aspect of a stent is coiled in the expectedregion of the urinary bladder and distal ureter Total dose area product : 704.52 mGycm2 Fluoroscopy time: 6.5 seconds IMPRESSION: Imaging assistance provided during a urologic procedure -------- FINAL REPORT -------- Dictated By: Xavier Crenshaw Dictated Date: 12/31/2024 09:17 ET Assigned Physician: Xavier Crenshaw Reviewed and Electronically Signed By: Xavier Crenshaw Signed Date: 12/31/2024 09:18 ET Workstation ID: [id number] Transcribed By: Self Edit Transcribed Date: 12/31/2024 09:17 ET us Mo Henson MD IMG FLUOROSCOPY PROCEDURES Fin al Result * TH AN LMA(NO CHARGE) (12/30/2024 2:39 PM EDT) Navin Sierra CRNA - 12/30/2024 2:39 PM EDT Navin Ziegler CRNA 12/30/2024 2:40 PM General Information and Staff Patient location during procedure: OR Performed by: Navin Ziegler CRNA Authorized by: Darin Brady MD Intubation Airway not difficult Reason: elective Final Airway Details Ventilation between attempts: none LMA Size: 4 LMA Type: Classic LMA Seal Pressure: Final airway type: LMA Indications and Patient Condition Indications for airway management: anesthesia Sedation level: Yes Preoxygenated: yesSoft Tissue Damage: No Dentition Unchanged: Yes Patient position: neutral MILS maintained throughout Mask difficulty assessment: 0 - not attempted Start Time: 12/30/2024 2:32 PMStop Time: 12/30/2024 2:32 PM us Darin Brady MD ANESTHESIA ORDERABLES Final Re sult * Culture urine (12/22/2024 12:00 AM EDT) Only the most recent of3 resultswithin the time period is included. Culture, Urine No growth 12/23/2024 8:39 AM EDT [facility] Urine Urine specimen obtained by clean catch procedure / Unknown 12/22/2024 12/22/2024 12:37 PM EDT us Miguel Brandon MD LAB MICROBIOLOGY - [facility] Final Result [facility] [address] [place] [address], * (ABNORMAL) Drug abuse screen 8a panel, urine (12/18/2024 8:22 AM EDT) Amphetamine Screen, Ur Negative Negative LAB CHEMISTRY METHOD 5 9:38 AM EDT [facility] Comment:Certain OTC medicati ons containing ephedrine, phenylephrine, pseudoephedrine and phenylpropanolamine can cause false positive results. Barbiturate Screen, Ur Negative Negative LAB CHEMISTRY METHOD 5 9:38 AM EDT [facility] Benzodiazepine Screen, Ur Negative Negative LAB CHEMISTRY METHOD 5 9:38 AM EDT [facility] Cocaine Screen, Ur Negative Negative LAB CHEMISTRY METHOD 5 9:38 AM EDT [facility] Opiate Screen, Ur Positive(A ) Negative LAB CHEMISTRY METHOD 9:38 AM [facility] Cannabinoid (THC) Screen, Ur Positive(A ) Negative LAB CHEMISTRY METHOD 9:38 AM [facility] Comment:Specimens from patie nts taking pantoprazole sodium (Protonix) have been shown to produce false positive results. Oxycodone Screen, Ur Negative Negative LAB CHEMISTRY METHOD 9:38 AM [facility] Fentanyl, Ur Negative Negative LAB CHEMISTRY METHOD 9:38 AM [facility] Urine Urine specimen obtained by clean catch procedure / Unknown Non-blood Collection / Unknown 12/18/2024 8:22 AM EDT 12/18/2024 8:42 AM EDT Narrative [facility] - 12/18/2024 9:38 AM EDT Assay cutoffs: Amphetamines 1000 ng/mL Barbiturates 200 ng/mL Benzodiazepines 200 ng/mL Cocaine 300 ng/mL Fentanyl 1 ng/mL Opiates 300 ng/mL Oxycodone 100 ng/mL THC 50 ng/mL Semi-quantitative assay for screening purposes only. Unconfirmed screening result should not be used for non-medical purposes. *ALTERNATE METHOD CONFIRMATION DONE UPON REQUEST ONLY* John Smith MD LAB URINE ORDERABLES nal Result [facility] [address] [place] [address], * (ABNORMAL) CBC auto differential (12/18/2024 5:54 AM EDT) Only the most recent of5 resultswithin the time period is included. WBC 7.7 4.8 - 10.8 [facility] LAB HEMETOLOGY METHOD 12/18/2024 7:55 AM EDT [facility] RBC 4.50 4.50 - 5.50 M/mcL LAB HEMETOLOGY METHOD 12/18/2024 7:55 AM [facility] Hemoglobin 12.9(L) 13.5 - 17.5 g/dL LAB HEMETOLOGY METHOD 12/18/2024 7:55 AM [facility] Hematocrit 39.0(L) 42.0 - 54.0 % LAB HEMETOLOGY METHOD 12/18/2024 7:55 AM [facility] MCV 87.1 79.0 - 98.0 FL LAB HEMETOLOGY METHOD 12/18/2024 7:55 AM [facility] MCH 28.8 27.0 - 32.0 pcg LAB HEMETOLOGY METHOD 12/18/2024 7:55 AM [facility] MCHC 33.1 32.0 - 37.0 g/dL LAB HEMETOLOGY METHOD 12/18/2024 7:55 AM [facility] RDW 12.6 11.0 - 15.0 % LAB HEMETOLOGY METHOD 12/18/2024 7:55 AM [facility] Platelets 222 130 - 400 K/mcL LAB HEMETOLOGY METHOD 12/18/2024 7:55 AM [facility] MPV 10.0 7.0 - 11.0 FL LAB HEMETOLOGY METHOD 12/18/2024 7:55 AM [facility] NRBC 0.0 <1.0 % LAB HEMETOLOGY METHOD 12/18/2024 7:55 AM [facility] NRBC Absolute 0.00 <0.10 K/mcL LAB HEMETOLOGY METHOD 12/18/2024 7:55 AM [facility] Neutrophils Relative 55.1 % LAB HEMETOLOGY METHOD 12/18/2024 7:55 AM [facility] Lymphocytes Relative 32.2 % LAB HEMETOLOGY METHOD 12/18/2024 7:55 AM [facility] Monocytes Relative 9.6 % LAB HEMETOLOGY METHOD 12/18/2024 7:55 AM [facility] Eosinophils Relative 1.8 % LAB HEMETOLOGY METHOD 12/18/2024 7:55 AM [facility] Basophils Relative 1.0 % LAB HEMETOLOGY METHOD 12/18/2024 7:55 AM [facility] Immature Granulocytes Relative 0.3 % LAB HEMETOLOGY METHOD 12/18/2024 7:55 AM [facility] Neutrophils Absolute 4.22 1.50 - 7.00 K/mcL LAB HEMETOLOGY METHOD 12/18/2024 7:55 AM [facility] Lymphocytes Absolute 2.47 1.00 - 5.00 K/mcL LAB HEMETOLOGY METHOD 12/18/2024 7:55 AM [facility] Monocytes Absolute 0.74 0.20 - 1.00 K/mcL LAB HEMETOLOGY METHOD 12/18/2024 7:55 AM [facility] Eosinophils Absolute 0.14 0.00 - 0.50 K/mcL LAB HEMETOLOGY METHOD 12/18/2024 7:55 AM [facility] Basophils Absolute 0.08 0.00 - 0.20 K/mcL LAB HEMETOLOGY METHOD 12/18/2024 7:55 AM [facility] Immature Granulocytes Absolute 0.02 0.00 - 0.03 K/mcL LAB HEMETOLOGY METHOD 12/18/2024 7:55 AM [facility] Blood Venous blood specimen / Unknown Venipuncture / Unknown 12/18/2024 5:54 AM EDT 12/18/2024 7:24 AM EDT us Chris Lucio MD LAB BLOOD ORDERABLES Final Result [facility] [address] [place] [address], * Basic metabolic panel (12/18/2024 5:54 AM EDT) Only the most recent of2 resultswithin the time period is included. Sodium 138 133 - 145 mmol/L LAB CHEMISTRY METHOD 12/18/2024 8:04 AM [facility] Potassium 3.7 3.5 - 5.5 mmol/L LAB CHEMISTRY METHOD 12/18/2024 8:04 AM [facility] Chloride 107 96 - 110 mmol/L LAB CHEMISTRY METHOD 12/18/2024 8:04 AM [facility] CO2 26 21 - 32 mmol/L LAB CHEMISTRY METHOD 12/18/2024 8:04 AM [facility] Anion Gap 5 3 - 11 LAB CHEMISTRY METHOD 12/18/2024 8:04 AM [facility] Glucose 84 70 - 100 mg/dL LAB CHEMISTRY METHOD 12/18/2024 8:04 AM [facility] BUN 12 5 - 25 mg/dL LAB CHEMISTRY METHOD 12/18/2024 8:04 AM [facility] Creatinine 1.11 0.70 - 1.30 mg/dL LAB CHEMISTRY METHOD 12/18/2024 8:04 AM [facility] eGFR 82 >=60 mL/min/1. 73m2 LAB CHEMISTRY METHOD 12/18/2024 8:04 AM [facility] Comment:Calculation based on the Chronic Kidney Disease Epidemiology Collaboration (CKD-EPI) equation refit without adjustment for race. BUN/Creatinine Ratio 10.8 LAB CHEMISTRY METHOD 12/18/2024 8:04 AM [facility] Calcium 8.5 8.5 - 10.5 mg/dL LAB CHEMISTRY METHOD 12/18/2024 8:04 AM [facility] Blood Venous blood specimen / Unknown Venipuncture / Unknown 12/18/2024 5:54 AM EDT 12/18/2024 7:23 AM EDT us Chris Lucio MD LAB BLOOD ORDERABLES Final Result [facility] [address] [place] [address], [place] [phone] * CT Abdomen Pelvis w Contrast (12/17/2024 6:45 PM EDT) Only the most recent of3 resultswithin the time period is included. Anatomical Region Laterality Modality Body Computed Tomogra phy 12/17/2024 7:18 PM EDT Impressions 12/17/2024 7:18 PM EDT Persistent [id number]-dc-lhdvakcl left hydroureteronephrosis. 2 mm stone is now at the left ureterovesical junction. This document has been electronically signed by: Darin Kaiser MD on 12/17/2024 19:18:35 Narrative 12/17/2024 7:18 PM EDT INDICATION: known left ureteral stone, uncontrolled pain CT abdomen and pelvis with contrast Comparison: CT/KO/ME/SR - CT ABD PEL W CONTRAST - 12/14/24 10:24 EDT Findings: The lung bases are clear. There are stones within the gallbladder. Spleen, adrenal glands, pancreas, common duct and liver are unremarkable. There are multiple bilateral renal cysts. No hydronephrosis of the right kidney. No right sided ureteral stones. There is a 2 mm stone at the left ureterovesical junction. Resulting in moderate left hydronephrosis and mild left hydroureter, stone has advanced slightly in comparison to prior. Nonobstructing small stone in the lower pole of the left kidney. No bowel obstruction, pneumoperitoneum, or pneumatosis. Normal appendix. Moderate fecal loading in the proximal colon. Prostate gland is upper limits of normal. The bones are intact. Procedure Note Darin Kaiser MD - 12/17/2024 INDICATION: known left ureteral stone, uncontrolled pain CT abdomen and pelvis with contrast Comparison: CT/KO/ME/SR - CT ABD PEL W CONTRAST - 12/14/24 10:24 EDT Findings: The lung bases are clear. There are stones within the gallbladder. Spleen, adrenal glands,pancreas, common duct and liver are unremarkable. There are multiple bilateral renal cysts. No hydronephrosis of the right kidney. No right sided ureteral stones. There is a 2 mm stone at theleft ureterovesical junction. Resulting in moderate left hydronephrosis and mild left hydroureter, stone has advanced slightly in comparison toprior. Nonobstructing small stone in the lower pole of the left kidney. No bowel obstruction, pneumoperitoneum, or pneumatosis. Normal appendix. Moderate fecal loading in the proximal colon. Prostate gland is upper limits of normal. The bones are intact. IMPRESSION: Persistent uraa-ab-bkssokia left hydroureteronephrosis. 2 mm stone isnow at the left ureterovesical junction. This document has been electronically signed by: Darin Kaiser MD on 12/17/2024 19:18:35 us Richie Agosto MD IMG CT PROCEDURES Final Resu lt * (ABNORMAL) Urinalysis with reflex microscopic (12/17/2024 5:59 PM EDT) Specific [place] Urine 1.015 1.003 - 1.030 LAB URINALYSIS - AUTOMATED METHOD 12/17/2024 6:36 PM [facility] pH, Urine 6.5 5.0 - 8.0 pH LAB URINALYSIS - AUTOMATED METHOD 12/17/2024 6:36 PM [facility] Leukocytes, Urine Small(A) Negative LAB URINALYSIS - AUTOMATED METHOD 12/17/2024 6:36 PM [facility] Nitrite, Urine Negative Negative LAB URINALYSIS - AUTOMATED METHOD 12/17/2024 6:36 PM [facility] Protein, Urine Negative <=Trace mg/dL LAB URINALYSIS - AUTOMATED METHOD 12/17/2024 6:36 PM [facility] Glucose, Urine Negative Negative mg/dL LAB URINALYSIS - AUTOMATED METHOD 12/17/2024 6:36 PM T [facility] Ketones, Urine 15(A) Negative mg/dL LAB URINALYSIS - AUTOMATED METHOD 12/17/2024 6:36 PM [facility] Urobilinogen , Urine 0.2 0.2 - 1.0 mg/dL LAB URINALYSIS - AUTOMATED METHOD 12/17/2024 6:36 PM [facility] Bilirubin, Urine Negative Negative LAB URINALYSIS - AUTOMATED METHOD 12/17/2024 6:36 PM [facility] Blood, Urine Moderate(A) Negative LAB URINALYSIS - AUTOMATED METHOD 12/17/2024 6:36 PM [facility] RBC, Urine 16.5(H) 0 - 4 /HPF LAB URINALYSIS - AUTOMATED METHOD 12/17/2024 6:36 PM [facility] WBC, Urine 17.1(H) 0 - 4 /HPF LAB URINALYSIS - AUTOMATED METHOD 12/17/2024 6:36 PM [facility] Squamous Epithelial, Urine 17 0 - 60 /LPF LAB URINALYSIS - AUTOMATED METHOD 12/17/2024 6:36 PM [facility] Bacteria, Urine Negative Negative /HPF LAB URINALYSIS - AUTOMATED METHOD 12/17/2024 6:36 PM [facility] Hyaline Casts, Urine 2.4 0 - 3 /LPF LAB URINALYSIS - AUTOMATED METHOD 12/17/2024 6:36 PM [facility] Urine Urine specimen obtained by clean catch procedure / Unknown Non-blood Collection / Unknown 12/17/2024 5:59 PM EDT 12/17/2024 6:26 PM EDT us Richie Agosto MD LAB URINE ORDERABLES Final R esult [facility] [address] [place] [address], [place] [phone] * Comprehensive Metabolic Panel (CMP) (12/17/2024 4:15 PM EDT) Only the most recent of4 resultswithin the time period is included. Sodium 138 133 - 145 mmol/L LAB CHEMISTRY METHOD 12/17/2024 5:54 PM EDT [facility] Potassium 3.9 3.5 - 5.5 mmol/L LAB CHEMISTRY METHOD 12/17/2024 5:54 PM T [facility] Chloride 102 96 - 110 mmol/L LAB CHEMISTRY METHOD 12/17/2024 5:54 PM [facility] CO2 27 21 - 32 mmol/L LAB CHEMISTRY METHOD 12/17/2024 5:54 PM [facility] Anion Gap 9 3 - 11 LAB CHEMISTRY METHOD 12/17/2024 5:54 PM [facility] Glucose 80 70 - 100 mg/dL LAB CHEMISTRY METHOD 12/17/2024 5:54 PM [facility] BUN 13 5 - 25 mg/dL LAB CHEMISTRY METHOD 12/17/2024 5:54 PM [facility] Creatinine 0.96 0.70 - 1.30 mg/dL LAB CHEMISTRY METHOD 12/17[facility]24 5:[facility] eGFR 98 >=60 mL/min/1. 73m2 LAB CHEMISTRY METHOD 12/17/2024 5:54 PM [facility] Comment:Calculation based on the Chronic Kidney Disease Epidemiology Collaboration (CKD-EPI) equation refit without adjustment for race. BUN/Creatinine Ratio 13.5 LAB CHEMISTRY METHOD 12/17/2024 5:54 PM [facility] Calcium 9.6 8.5 - 10.5 mg/dL LAB CHEMISTRY METHOD 12/17/2024 5:54 PM [facility] AST (SGOT) 19 10 - 42 unit/L LAB CHEMISTRY METHOD 12/17/2024 5:54 PM EDT [facility] ALT (SGPT) 21 10 - 60 unit/L LAB CHEMISTRY METHOD 12/17/2024 5:54 PM EDT [facility] Alkaline Phosphatase 75 42 - 121 unit/L LAB CHEMISTRY METHOD 12/17/2024 5:54 PM EDT [facility] Total Protein 7.1 6.0 - 8.0 g/dL LAB CHEMISTRY METHOD 12/17/2024 5:54 PM EDT [facility] Albumin 3.8 3.2 - 5.0 g/dL LAB CHEMISTRY METHOD 12/17/2024 5:54 PM EDT [facility] Total Bilirubin 1.0 0.0 - 1.4 mg/dL LAB CHEMISTRY METHOD 12/17/2024 5:54 PM EDT [facility] Blood Venous blood specimen / Unknown Venipuncture / Unknown 12/17/2024 4:15 PM EDT 12/17/2024 5:20 PM EDT us Richie Agosto MD LAB BLOOD ORDERABLES Final R esult [facility] [address] [place] [address], [place] [phone] * (ABNORMAL) Urinalysis with reflex microscopic and culture (12/14/2024 11:45 AM EDT) Only the most recent of3 resultswithin the time period is included. Specific [place] Urine >1.045(H) 1.003 - 1.030 LAB URINALYSIS - AUTOMATED METHOD 12/14/2024 12:09 PM T [facility] pH, Urine 6.0 5.0 - 8.0 pH LAB URINALYSIS - AUTOMATED METHOD 12/14/2024 12:09 PM [facility] Leukocytes, Urine Negative Negative LAB URINALYSIS - AUTOMATED METHOD 12/14/2024 12:09 PM [facility] Nitrite, Urine Negative Negative LAB URINALYSIS - AUTOMATED METHOD 12/14/2024 12:09 PM [facility] Protein, Urine Trace <=Trace mg/dL LAB URINALYSIS - AUTOMATED METHOD 12/14/2024 12:09 PM [facility] Glucose, Urine Negative Negative mg/dL LAB URINALYSIS - AUTOMATED METHOD 12/14/2024 12:09 PM [facility] Ketones, Urine Negative Negative mg/dL LAB URINALYSIS - AUTOMATED METHOD 12/14/2024 12:09 PM [facility] Urobilinogen , Urine 0.2 0.2 - 1.0 mg/dL LAB URINALYSIS - AUTOMATED METHOD 12/14/2024 12:09 PM [facility] Bilirubin, Urine Negative Negative LAB URINALYSIS - AUTOMATED METHOD 12/14/2024 12:09 PM [facility] Blood, Urine Large(A) Negative LAB URINALYSIS - AUTOMATED METHOD 12/14/2024 12:09 PM [facility] RBC, Urine 51.1(H) 0 - 4 /HPF LAB URINALYSIS - AUTOMATED METHOD 12/14/2024 12:09 PM [facility] WBC, Urine 2.7 0 - 4 /HPF LAB URINALYSIS - AUTOMATED METHOD 12/14/2024 12:09 PM [facility] Squamous Epithelial, Urine 1 0 - 60 /LPF LAB URINALYSIS - AUTOMATED METHOD 12/14/2024 12:09 PM [facility] Bacteria, Urine Negative Negative /HPF LAB URINALYSIS - AUTOMATED METHOD 12/14/2024 12:09 PM [facility] Hyaline Casts, Urine 0.0 0 - 3 /LPF LAB URINALYSIS - AUTOMATED METHOD 12/14/2024 12:09 PM [facility] Urine Urine specimen obtained by clean catch procedure / Unknown Non-blood Collection / Unknown 12/14/2024 11:45 AM EDT 12/14/2024 11:53 AM EDT Mike MOSES LAB URINE ORDERABLES Final Result Performing Organization Address [facility]/ZIP Co de Phone Number [facility] [address] [place] [address], [place] [phone] * Boss urine culture tube (12/14/2024 11:45 AM EDT) Only the most recent of3 resultswithin the time period is included. Extra Tube Hold for add-ons. 12/14/2024 1:01 PM EDT [facility] Comment:Auto resulted. Urine Urine specimen obtained by clean catch procedure / Unknown Non-blood Collection / Unknown 12/14/2024 11:45 AM EDT 12/14/2024 11:53 AM EDT Mike MOSES LAB URINE ORDERABLES Final Result Performing Organization Address [facility] Co de Phone Number [facility] [address] [place] [address], [place] [phone] * Lipase (12/14/2024 9:00 AM EDT) Only the most recent of2 resultswithin the time period is included. Lipase 61 13 - 75 unit/L LAB CHEMISTRY METHOD 12/14/2024 9:41 AM EDT [facility] Blood Venous blood specimen / Unknown Venipuncture / Unknown 12/14/2024 9:00 AM EDT 12/14/2024 9:17 AM EDT Mike MOSES LAB BLOOD ORDERABLES Final Result Performing Organization Address City/[facility]/ZIP Co de Phone Number [facility] [address] [place] [address], [place] [phone] * Endomysial antibody, IgA (12/13/2024 10:48 AM EDT) Endomysial IgA Negative Negative 12/15/2024 8:12 AM EDT [facility] Blood Venous blood specimen / Unknown Venipuncture / Unknown 12/13/2024 10:48 AM EDT 12/13/2024 10:48 AM EDT us Kayla Deutsch [employer] LAB BLOOD ORDERABLES Final Resu lt [facility] [address] [place] [address], [place] [phone] * Gliadin antibodies, serum (12/13/2024 10:48 AM EDT) Gliadin IgA 3 <20 units LAB CHEMISTRY METHOD 12/14/2024 12:09 PM EDT [facility] Gliadin IgG 3 <20 units LAB CHEMISTRY METHOD 12/14/2024 12:09 PM EDT [facility] Gliadin IgA Antibody Negative Negative LAB CHEMISTRY METHOD 12/14/2024 12:09 PM EDT [facility] Gliadin IgG Antibody Negative Negative LAB CHEMISTRY METHOD 12/14/2024 12:09 PM EDT [facility] Blood Venous blood specimen / Unknown Venipuncture / Unknown 12/13/2024 10:48 AM EDT 12/13/2024 10:48 AM EDT us Kayla Deutsch [employer] LAB BLOOD ORDERABLES Final Resu lt [facility] [address] [place] [address], [place] [phone] * Tissue transglutaminase, IgA (12/13/2024 10:48 AM EDT) Tissue Transglutaminase Ab, IgA Quant 0 <4 unit/mL LAB CHEMISTRY METHOD 12/14/2024 12:10 PM EDT [facility] Tissue Transglutaminase Ab, IgA Negative Negative LAB CHEMISTRY METHOD 12/14/2024 12:10 PM EDT [facility] Blood Venous blood specimen / Unknown Venipuncture / Unknown 12/13/2024 10:48 AM EDT 12/13/2024 10:48 AM EDT Kayla Deutsch [employer] LAB BLOOD ORDERABLES Final Resu lt [facility] [address] [place] [address], * Tissue transglutaminase, IgG (12/13/2024 10:48 AM EDT) [facility] t-Transglutamin ase (tTG) IgG <2 0 - 5 U/mL 12/15/2024 7:05 PM EDT [facility] Comment: Negative 0 - 5 Weak Positive 6 - 9 Positive >9 Blood Venous blood specimen / Unknown Venipuncture / Unknown 12/13/2024 10:48 AM EDT 12/13/2024 10:48 AM EDT Narrative [facility] - 12/15/2024 7:05 PM EDT Performed at: [facility] [id number] Head Rose Grower: Sidra Blake MD, Phone: [phone] Kayla Deutsch [employer] LAB BLOOD ORDERABLES Final Resu lt [facility] * Immunoglobulin IgA (12/13/2024 10:48 AM EDT) [facility] IgA 133 61 - 348 mg/dL LAB CHEMISTRY METHOD 12/13/2024 7:41 PM EDT [facility] Blood Venous blood specimen / Unknown Venipuncture / Unknown 12/13/2024 10:48 AM EDT 12/13/2024 10:48 AM EDT Kayla Deutsch [employer] LAB BLOOD ORDERABLES Final Resu lt [facility]OH[facility] ([facility] [address] [place] [address], * XR Sacrum Coccyx 2+ Views (11/30/2024 4:27 PM EDT) Anatomical Region Laterality Modality Body, Spine, Pelvis Radiographic Imaging 12/01/2024 11:4 5 AM EDT Impressions 12/01/2024 11:46 AM EDT No fracture detected. -------- FINAL REPORT -------- Dictated By: Emi So Dictated Date: 12/01/2024 11:45 ET Assigned Physician: Emi So Reviewed and Electronically Signed By: Emi So Signed Date: 12/01/2024 11:46 ET Workstation ID: [id number] Transcribed By: Self Edit Transcribed Date: 12/01/2024 11:45 ET Narrative 12/01/2024 11:46 AM EDT EXAM: Sacrum and coccyx x-ray HISTORY: Coccyx pain. COMPARISON: None, correlation with lumbar spine radiography 04/23/2017 FINDINGS: 3 views performed. No fracture detected. No destructive bone lesion. Sacroiliac joints are patent. Procedure Note Emi So MD - 12/01/2024 EXAM: Sacrum and coccyx x-ray HISTORY: Coccyx pain. COMPARISON: None, correlation with lumbar spine radiography 04/23/2017 FINDINGS: 3 views performed. No fracture detected. No destructive bone lesion. Sacroiliac joints arepatent. IMPRESSION: No fracture detected. -------- FINAL REPORT -------- Dictated By: Emi So Dictated Date: 12/01/2024 11:45 ET Assigned Physician: Emi So Reviewed and Electronically Signed By: Emi So Signed Date: 12/01/2024 11:46 ET Workstation ID: [id number] Transcribed By: Self Edit Transcribed Date: 12/01/2024 11:45 ET us Travis Patten [employer] IMG XR PROCEDURES Final Resu lt * XR Lumbar Spine 4+ Views (11/30/2024 4:27 PM EDT) Anatomical Region Laterality Modality Spine, L-spine Radiographic Crystal ging 12/01/2024 11:4 1 AM EDT Impressions 12/01/2024 11:44 AM EDT Mildly progressive degenerative changes in the lower spine. -------- FINAL REPORT -------- Dictated By: Emi So Dictated Date: 12/01/2024 11:41 ET Assigned Physician: Emi So Reviewed and Electronically Signed By: Emi So Signed Date: 12/01/2024 11:44 ET Workstation ID: [id number] Transcribed By: Self Edit Transcribed Date: 12/01/2024 11:41 ET Narrative 12/01/2024 11:44 AM EDT EXAM: Lumbar spine x-ray HISTORY: Chronic midline low back pain without sciatica. COMPARISON: 04/23/2017 FINDINGS: 4 views of the lumbar spine were performed. 5 lumbar type vertebral bodies. Vertebral body heights are maintained. Mild disc space narrowing again noted at L5-S1. No evidence of spondylolysis or spondylolisthesis. Mildly progressive facet arthropathy at L4-5 and L5-S1. Procedure Note Emi So MD - 12/01/2024 EXAM: Lumbar spine x-ray HISTORY: Chronic midline low back pain without sciatica. COMPARISON: 04/23/2017 FINDINGS: 4 views of the lumbar spine were performed. 5 lumbar type vertebral bodies. Vertebral body heights are maintained.Mild disc space narrowing again noted at L5-S1. No evidence ofspondylolysis or spondylolisthesis. Mildly progressive facet arthropathyat L4-5 and L5-S1. IMPRESSION: Mildly progressive degenerative changes in the lower spine. -------- FINAL REPORT -------- Dictated By: Emi So Dictated Date: 12/01/2024 11:41 ET Assigned Physician: Emi So Reviewed and Electronically Signed By: Emi So Signed Date: 12/01/2024 11:44 ET Workstation ID: [id number] Transcribed By: Self Edit Transcribed Date: 12/01/2024 11:41 ET us Travis Patten [employer] IMG XR PROCEDURES Final Resu lt * ECG 12 lead (11/12/2024 1:58 PM EDT) Ventricular Rate ECG 71 BPM GEMUSE Atrial Rate 71 BPM GEMUSE P-R Interval 148 ms GEMUSE QRS Duration 88 ms GEMUSE Q-T Interval 394 ms GEMUSE QTc 428 ms GEMUSE P Wave [place] 43 degrees GEMUSE R [place] 49 degrees GEMUSE T [place] 50 degrees GEMUSE ECG Interpretation Normal sinus rhythm No previous ECGs available Confirmed by NUNO FOREMAN ([id number]) on 11/12/2024 11:48:57 PM GEMUSE 11/12/2024 1:58 PM EDT 11/12/2024 11:48 PM EDT us Mo Whitehead MD ECG ORDERABLES Final Resul t GEMUSE from Last 3 Months Additional Health Concerns Active Problems Noted Date Diagnosed Date Autogenerated Problem 12/31/[address]24 [address] [id number] [employer] MEDICARE Advance Directives * Full Code - Confirmed (Latest Code Status on File) Date Activated Date Inactivated Comments 12/17/2024 10:26 PM 12/18/2024 1:24 PM This code status was ascertained in the following way: Code status discussion: discussion with patient To update the patient's code status, place a code status order. Do not modify or discontinue any currently active code status orders. * Full Code - Default Date Activated Date Inactivated Comments 12/17/2024 9:47 PM 12/17/2024 10:26 PM This is o rder is used when code status has not been discussed with the patient, or code status is otherwise unknown/unconfirmed To update the patient's code status, place a code status order. Do not modify or discontinue any currently active code status orders. Care Teams Pattern Clerk Relationship Specialty Start Date End Date Meseret Hernandez MD [address] [place] [address] PCP - General Internal Medicine 07/11/14
--- OUTSIDE RECORDS SUMMARY | 2025-01-24 18:02 | XMS_ITS | Encounter Summary ---
Author Organization [facility] [place] [address] Care Team Providers Care Law Enforcement Officer Name Role Phone Meseret Hernandez MD Primary Care Provider [phone] Encounter Details Date Type Department Care Team (Late Contact Info) Description 12/19/2024 Telephone Adult Medicine [facility] [address] [place] [address] [phone] Meseret Hernandez MD [address] [place], [place] [phone] Social History Tobacco Use Types Packs/Day Years [...] Description 01/25/2025 2:15 PM EST Clinical Support [address] [phone] 02/15/2025 11:15 AM EST Clinical Support [address] [phone] 02/22/2025 8:00 AM EST Consult Endocrinology [address] [phone] Mis Kohli MD [address] [place] [address] 04/13/2025 11:15 AM EST Office Visit Adult [address] [phone] Meseret Hernandez MD [address] [place] [address] documented as of this encounter Visit Diagnoses Not on filedocumented in this encounter Additional Health Concerns Assessment Noted Time PHQ-9 Depression Total Score: 7 12/01/19 25 3:00 PM EDT documented as of this encounter Care Teams Law Enforcement Officer Relationship Specialty Start Date End Date Meseret Hernandez MD [address] [place] [address] PCP - General Internal Medicine 07/11/14 documented as of this encounter
--- OUTSIDE RECORDS SUMMARY | 2025-01-24 18:02 | XMS_ITS | Encounter Summary ---
Author Organization [facility] [place] [address] Care Team Providers Care Air Conditioning Specialist Name Role Phone Meseret Hernandez MD Primary Care Provider Reason for Referral * Imaging (Routine) - Pending Review Specialty Diagnoses / Procedures [facility]erred To Contact Radiology Diagnoses Thyroid nodule Low thyroid stimulating hormone (TSH) level Hyperthyroidism Procedures US Guided Fine Ndl Asp 1st Lesion Travis Patten NP [address] [place] [address] Phone: tel: fax: [address] Phone: tel: Referral ID Status Reason Start Date Expiration Date V isits Requested Visits Authorized [id number] Pending Review 01/23/2025 01/23/2026 1 1 Reason for Visit * Reason Onset Date Comments Imaging Follow-up 01/23/2025 Thyroid US Encounter Details Date Type Department Care Team ([facility] Contact Info) Description 01/23/2025 Results Follow-Up Adult Medicine [address] [phone] Travis Patten NP [address] [place] [address] Social History Tobacco Use Types Packs/Day Years [...] as of this encounter Progress Notes * Travis Patten NP - 01/23/2025 1:52 PM EST Discussed results with the patient. Order placed for FNA of the thyroid nodule. He has appointment with endocrine 02/22/25 documented in this encounter Plan of Treatment Upcoming Encounters Date Type Department Care Team (Late st Contact Info) Description 01/25/2025 2:15 PM EST Clinical Support Adult Medicine [address] [phone] 02/15/2025 11:15 AM EST Clinical Support Adult Medicine [address] [phone] 02/22/2025 8:00 AM EST Consult Endocrinology [address] [phone] Mis Kohli MD [address] [place] [address] 04/13/2025 11:15 AM EST Office Visit Adult Medicine [address] [place] [phone] Meseret Hernandez MD [address] [place] [address] Scheduled Orders Name Type Priority Associated Diagnoses Orde r Schedule US Guided Fine Ndl Asp 1st Lesion Imaging Routine Thyroid nodule Low thyroid stimulating hormone (TSH) level Hyperthyroidism Expected: 01/23/2025, Expires: 01/23/2026 documented as of this encounter Goals Goal Patient Goal Type Associated Problems Recent Progress Patient-Stated? Author Autogenera fabian Goal Care Plan Autogenerated Problem No Jo Jordan documented as of this encounter Visit Diagnoses Diagnosis Thyroid nodule- Primary Nontoxic uninodular goiter Low thyroid stimulating hormone (TSH) level Hyperthyroidism Thyrotoxicosis without mention of goiter or other cause, without mention of thyrotoxic crisis or storm documented in this encounter Additional Health Concerns Active Problems Noted Date Diagnosed Date Autogenerated Problem 12/31/2024 Assessment Noted Time PHQ-9 Depression Total Score: 7 12/01/19 25 3:00 PM EDT documented as of this encounter Care Teams Air Conditioning Specialist Relationship Specialty Start Date End Date Meseret Hernandez MD [address] [place] [address] PCP - General Internal Medicine 07/11/14 documented as of this encounter
--- OUTSIDE RECORDS SUMMARY | 2025-01-24 18:02 | XMS_ITS | Encounter Summary ---
Author Organization [facility] [place] [address] Care Team Providers Care Gelatin Dynamite Packing Operator Name Role Phone Meseret Hernandez MD Primary Care Provider [phone] Encounter Details Date Type Department Care Team (Late Contact Info) Description 12/03/2024 Results Follow-Up Adult Medicine [address] [phone] Travis Patten, MAICOL [address] [place], [place] Social History Tobacco Use Types Packs/Day Years Used Date Smoking Tobacco: Never Smokeless Tobacco: Never Alcohol Use Standard Drinks/Week Comments Yes 0 (1 standard drink = 0.6 oz pur e alcohol) Sex and Gender Information Value Date Recorded Sex Assigned at Male 01/13/2025 11:19 AM EST Legal Sex Male 2:00 PM EDT Gender Identity Male 12/07/2024 12:35 PM EDT Sexual Orientation Not on file documented as of this encounter Plan of Treatment Upcoming Encounters Date Type Department Care Team (Late Contact Info) Description 01/25/2025 2:15 PM EST Clinical Support Adult Medicine [address], [place] [phone] 02/15/2025 11:15 AM EST Clinical Support Adult [address] [phone] 02/22/2025 8:00 AM EST Consult Endocrinology [address] [phone] Mis Kohli MD [address] [place] [address] 04/13/2025 11:15 AM EST Office Visit Adult [address] [phone] Meseret Hernandez MD [address] [place] [address] documented as of this encounter Visit Diagnoses Not on filedocumented in this encounter Additional Health Concerns Assessment Noted Time PHQ-9 Depression Total Score: 7 12/01/19 25 3:00 PM EDT documented as of this encounter Care Teams Gelatin Dynamite Packing Operator Relationship Specialty Start Date End Date Meseret Hernandez MD [address] [place] [address] PCP - General Internal Medicine 07/11/14 documented as of this encounter
--- OUTSIDE RECORDS SUMMARY | 2025-01-24 18:02 | XMS_ITS | Encounter Summary ---
Author Organization [facility] [place] [address] Care Team Providers Care Organizational Effectiveness Consultant Name Role Phone Meseret Hernandez MD Primary Care Provider [phone] Encounter Details Date Type Department Care Team (Late st Contact Info) Description 12/15/2024 Results Follow-Up Gastroenterology - [place] [facility] 175 [facility] [address] [place] [phone] Kayla Deutsch NP 299 [facility] [address] [place] [address] Social History Tobacco Use Types Packs/Day Years [...] on file documented as of this encounter Functional Status * Calculated C-SSRS Risk Score (Lifetime/Recent) Answer Date of Assessment Author No Risk Indicated 12/18/2024 2:03 AM EDT Steffany Morales RN * [place] Suicide Severity Rating Scale (Screener/Recent Self-Report) Question Answer Date of Assessment Author 1. Wish to be (Past 1 Month) No 025 2:03 AM DOUGT Steffany Morales RN 2. Non-Specific Active Suici omid Thoughts (Past 1 Month) No 12/18/2024 2:03 AM EDT Nicholas Morales RN 6. Suicidal Behavior (Lifetime) No 2:03 AM EDT Steffany Morales RN documented as of this encounter Plan of Treatment Upcoming Encounters Date Type Department Care Team (Late st Contact Info) Description 01/25/2025 2:15 PM EST Clinical Support Adult [address] [phone] 02/15/2025 11:15 AM EST Clinical Support [address] [phone] 02/22/2025 8:00 AM EST Consult Endocrinology [address] [phone] Mis Kohli MD [address] [place] [address] 04/13/2025 11:15 AM EST Office Visit Adult [address] [phone] Meseret Hernandez MD [address] [place] [address] documented as of this encounter Visit Diagnoses Not on filedocumented in this encounter Additional Health Concerns Assessment Noted Time PHQ-9 Depression Total Score: 7 12/01/19 25 3:00 PM EDT documented as of this encounter Care Teams Organizational Effectiveness Consultant Relationship Specialty Start Date End Date Meseret Hernandez MD [address] [place] [address] PCP - General Internal Medicine 07/11/14 documented as of this encounter
--- OUTSIDE RECORDS SUMMARY | 2025-01-24 18:02 | XMS_ITS | Encounter Summary ---
Author Organization [facility] [place] [address] Care Team Providers Care Automatic Mold Sander Name Role Phone Meseret Hernandez MD Primary Care Provider [phone] Encounter Details Date Type Department Care Team (Late st Contact Info) Description 12/22/2024 Lab Requisition [facility] - Main Lab [address] [place] [address] Miguel Brandon MD [address] [facility] [address] [place] [phone] Urinary tract infection, site not specified; Calculus of ureter Social History Tobacco Use Types Packs/Day Years [...] Description 01/25/2025 2:15 PM EST Clinical Support [address] [phone] 02/15/2025 11:15 AM EST Clinical Support [address] [phone] 02/22/2025 8:00 AM EST Consult Endocrinology - [address] [phone] Mis Kohli MD [address] [place] [address] 04/13/2025 11:15 AM EST Office Visit [address] [phone] Meseret Hernandez MD [address] [place] [address] documented as of this encounter Procedures Procedure Name Priority Date/Time Associated Diagnosis Comments CULTURE URINE Routine 12/22/2024 12:00 AM EDT Urinary tract infection, site not specified Calculus of ureter documented in this encounter Results * Culture urine (12/22/2024 12:00 AM EDT) Culture, Urine No growth 12/23/2024 8:39 AM EDT [facility] Urine Urine specimen obtained by clean catch procedure / Unknown 12/22/2024 12/22/2024 12:37 PM EDT us Miguel Brandon MD LAB MICROBIOLOGY - GENERAL [place] Final Result [facility] [address] [place] [address], [place] [phone] documented in this encounter Visit Diagnoses Diagnosis Urinary tract infection, site not specified Calculus of ureter documented in this encounter Additional Health Concerns Assessment Noted Time PHQ-9 Depression Total Score: 7 12/01/19 25 3:00 PM EDT documented as of this encounter Care Teams Automatic Mold Sander Relationship Specialty Start Date End Date Meseret Hernandez MD [address] [place] [address] PCP - General Internal Medicine 07/11/14 documented as of this encounter
== END 2025-01-24 15:09 | disposition home or self-care (01) ==
PROVIDERS: PCP Internal Medicine; Visit Provider Physician Assistant
DX: M53.3 Sacrococcygeal disorders, not elsewhere classified (principal); M54.16 Radiculopathy, lumbar region; M70.61 Trochanteric bursitis, right hip; M70.62 Trochanteric bursitis, left hip
CPT/HCPCS: 99204

== ENCOUNTER → 2025-01-24 14:08 | Outpatient (BNVA) | payer MEDICARE, SELFPAY | PROVIDERS: PCP Internal Medicine; Visit Provider Physician Assistant | DX: M53.3 Sacrococcygeal disorders, not elsewhere classified (principal); M54.16 Radiculopathy, lumbar region; M70.61 Trochanteric bursitis, right hip; M70.62 Trochanteric bursitis, left hip; G89.29 Other chronic pain | CPT/HCPCS: 99202 ==